=== PATIENT | female | born 1995 | race Caucasian/White ===

== ENCOUNTER 2018-10-22 17:40 | Inpatient (IN) | payer OTHER ==
[~2018-10-22] VITALS: Ht 177.8 cm; Wt 68.9 kg
[2018-10-22 17:42] VITALS: BP 126/64
[2018-10-22 18:39] LABS: HEMATOCRIT 22.7 % (37.0-47.0); HEMOGLOBIN 7.7 gm/dL (12.0-15.0); MCHC 34.1 g/dL (28.0-37.0); MCV 93.8 fL (80.0-100.0); PLATELET COUNT 199 thou/uL (150-400); RBC 2.42 mil/uL (4.20-5.00); RDW 35.5 % (10.5-14.5); WBC 2.2 thou/uL (4.0-11.0)
[2018-10-22 18:40] LABS: CALCIUM 9.1 mg/dL (8.5-10.1); CREATININE 0.8 mg/dL (0.6-1.0); POTASSIUM 3.3 mmol/L (3.5-5.1)
[2018-10-22 18:46] LABS: ALBUMIN 4.2 g/dL (3.4-5.0); TOTAL BILIRUBIN 1.7 mg/dL (<0.1-1.0); TOTAL PROTEIN 7.7 g/dL (6.4-8.2)
[2018-10-22 19:12] LABS: ABSOLUTE NEUTROPHILS 0.9 thou/uL (1.4-8.2); ATYPICAL LYMPHS 6 %
[2018-10-22 19:15] LABS: PLATELET ESTIMATE NORMAL
[2018-10-22 19:18] LABS: OVALOCYTES 1+; TEARDROPS 1+
[2018-10-22 19:20] LABS: ANISOCYTOSIS 3+; POLYCHROMASIA 1+
[2018-10-22 19:21] LABS: HYPOCHROMASIA 2+; MACROCYTES 2+; POIKILOCYTOSIS 2+
[2018-10-22 19:31] LABS: ABSOLUTE RETIC COUNT 0.0473 10^6/uL; OBSERVED RETIC COUNT 1.96 % (0.6-2.6)
[2018-10-22 19:32] LABS: % SATURATION 45 % (20-39); IRON 197 ug/dL (50-170); TIBC 436 ug/dL (250-450)
[2018-10-22 20:31] VITALS: BP 114/55
[2018-10-22] MEDS ORDERED: CARAFATE 1 GM TA1 GM PO (20:41)
[2018-10-22] MEDS ORDERED: NEXIUM40 MG PO (20:41)
[2018-10-22 21:06] VITALS: BP 106/59
--- NOTE | 2018-10-22 21:06 | NUR ---
PT DEPARTED ON ED ON ER [facility] WITH PROTONIX DRIP CONTINUED TO FLOOR WITH INPATIENT NURSE AWARE. LEFT WITH POSSESSIONS. TRANSPORTED BY RN WITH MONITOR . VSS. STABLE AT TIME OF DEPART TO 3 W ROOM 355. UNABLE TO EDIT ON DEPARTURE SCREEN
[2018-10-22 21:22] VITALS: BP 115/61
[2018-10-23] VITALS (10 sets, daily range): BP systolic 99–112; BP diastolic 47–100
[2018-10-23 03:16] LABS: URINE BILIRUBIN NEGATIVE (Negative); URINE BLOOD 3+ (Negative); URINE CLARITY CLOUDY; URINE COLOR YELLOW; URINE GLUCOSE-RANDOM* NEGATIVE (Negative); URINE KETONES 2+ (Negative); URINE LEUKOCYTES-REFLEX TRACE (Negative); URINE PROTEIN (DIPSTICK) 1+ (Negative)
[2018-10-23 03:17] LABS: URINE NITRITE-REFLEX POSITIVE (Negative)
[2018-10-23 03:23] LABS: CASTS None Seen /LPF (None Seen); MUCUS 0-3 Light strn/LPF (None Seen); SQUAMOUS 4-10 Moderate /LPF (0-3); URINE RBC >20 Many /HPF (0-2); URINE WBC-REFLEX 0-5 Rare /HPF (0-5)
[2018-10-23 03:24] LABS: CRYSTALS None Seen /LPF (None Seen)
--- NOTE | 2018-10-23 03:29 | NUR ---
PT ARRIVED TO UNIT APPROX 2130, ADMISSION AND ASSESSMENT COMPLETED, CONSENTS SIGNED INCLUDING TELEMETRY NOTICE. PT A&Ox4, PLEASANT AND COOPERATIVE WITH CARES; REPORTS WEAKNESS AND OCCASIONAL DIZZINESS OVER THE LAST 1.5 MONTHS, MADE A HIGH-FALL RISK WITH FALL PRECAUTIONS IN PLACE. PLACED ON CLEAR LIQUIDS UNTIL MIDNIGHT THEN NPO FOR GI CONSULT IN AM; WILL ALSO CONSULT HEME-ONC. IV FLUIDS AND IV PROTONIX DRIP INFUSING, GIVEN ONE BAG IV POTASSIUM REPLACEMENT. URINE SPECIMEN SENT TO LAB; WILL SEND STOOL SAMPLE IF PT HAS A BM. HAS BEEN SR ON TELE. NO OTHER CONCERNS, WILL CONTINUE TO MONITOR.
[2018-10-23 05:11] LABS: MCH 31.8 pg (26.0-34.0); MCHC 34.6 g/dL (28.0-37.0); MCV 91.8 fL (80.0-100.0); RBC 1.92 mil/uL (4.20-5.00); WBC 2.2 thou/uL (4.0-11.0)
[2018-10-23 05:13] LABS: HEMOGLOBIN 6.1 gm/dL (12.0-15.0)
[2018-10-23 05:14] LABS: HEMATOCRIT 17.6 % (37.0-47.0)
[2018-10-23 05:23] LABS: CALCIUM 8.3 mg/dL (8.5-10.1); CREATININE 0.6 mg/dL (0.6-1.0); POTASSIUM 3.8 mmol/L (3.5-5.1)
[2018-10-23 05:57] LABS: FERRITIN 24 ng/mL (8-252); FOLIC ACID 18.1 ng/mL (8.6-58.9); TSH 1.971 uIU/mL (0.358-3.740)
[2018-10-23 10:26] LABS: OBSERVED RETIC COUNT 1.69 % (0.6-2.6)
[2018-10-23 10:32] LABS: ALBUMIN 3.3 g/dL (3.4-5.0); DIRECT BILIRUBIN 0.3 mg/dL (<0.1-0.3); TOTAL BILIRUBIN 1.5 mg/dL (<0.1-1.0); TOTAL PROTEIN 5.8 g/dL (6.4-8.2)
[2018-10-23 11:43] LABS: HEMOGLOBIN 7.5 gm/dL (12.0-15.0)
[2018-10-23 11:45] LABS: HEMATOCRIT 21.9 % (37.0-47.0)
[2018-10-23 12:36] LABS: MONOTEST (MONOSPOT)* WEAKLY POSITIVE (Negative)
--- NOTE | 2018-10-23 14:46 | NUR ---
INITIAL ASSESSMENT: SW reviewed chart and spoke with attending physician. Pt was admitted from home due to anemia/GI bleed. GI consulted. Pt Hgb dropped to 6.1 from 7.7. Hem/Onc also consulted. Per chart, pt is alert/orientated x 4. Pt does not have health insurance. MARIA LUZ faxed face sheet to [facility] to request eval. MARIA LUZ notified [facility] food service representative of new referral. MARIA LUZ is following to assist as needed with discharge planning.
--- NOTE | 2018-10-23 18:00 | NUR ---
PT WAS NPO UNTIL THIS AFTERNOON. SHE TOLERATED POPSICLE, WATER AND SPRITE FOR ABOUT 3 HOURS THEN BECAME NAUSEATED @ 1700 AND WAS MEDICATED WITH ZOFRAN AND ADVISED TO TAKE CLIQ SPARINGLY UNTIL NAUSEA RESOLVES...
[2018-10-24 03:26] VITALS: BP 118/73
[2018-10-24 05:42] LABS: HEMOGLOBIN 7.8 gm/dL (12.0-15.0); MCHC 34.6 g/dL (28.0-37.0)
[2018-10-24 05:44] LABS: HEMATOCRIT 22.5 % (37.0-47.0); MCH 31.1 pg (26.0-34.0); MCV 89.8 fL (80.0-100.0); PLATELET COUNT 149 thou/uL (150-400); RBC 2.51 mil/uL (4.20-5.00); RDW 30.7 % (10.5-14.5); WBC 2.5 thou/uL (4.0-11.0)
[2018-10-24 05:58] LABS: CALCIUM 8.3 mg/dL (8.5-10.1); CREATININE 0.6 mg/dL (0.6-1.0)
--- NOTE | 2018-10-24 06:36 | NUR ---
ASSUMED CARE AT 1900. PT REPORTS FEELING NAUSEATED AND HAVING SHARP PAIN IN MULTIPLE AREAS OF THE ABD; AT START OF EVENING, IT WAS TOO EARLY TO GIVE ZOFRAN, OBTAINED ONE TIME ORDER FOR COMPAZINE. AFTER GIVING FENTANYL AND COMPAZINE, PT BECAME VERY DIZZY, DIAPHORETIC, AND MORE NAUSEATED; THIS LASTED MOST OF THE NIGHT. OBTAINED ORDER FOR REGLAN, WHICH HELPED SOME; NOW ALTERNATING BETWEEN ZOFRAN AND REGLAN FOR NAUSEA, MARKED COMPAZINE A DRUG ALLERGY. PT URINATED MULTIPLE TIMES OVERNIGHT, STILL HAS MENSTRUAL BLOOD PRESENT. HAS BEEN SR WITH HR IN 70'S, EXCEPT WHEN SHE GETS UP TO TOILET HER HR GOES UP TO 120-130'S. REMOVED LEFT AC IV SHE C/O BURNING PAIN WHEN FLUSHED. IV FLUIDS AND PROTONIX DRIP INFUSING THROUGH RIGHT HAND. PT SLEPT VERY LITTLE OVERNIGHT, AND REPORTS FEELING POORLY ALL NIGHT. STILL NEED STOOL SAMPLE FROM PT. NO OTHER CONCERNS, WILL CONTINUE TO MONITOR.
[2018-10-24 07:13] LABS: HAV IgM AB (ANTI-HAV IgM) Negative (Negative); HEPATITIS B SURFACE AG Negative (Negative); HEPATITIS C VIRUS AB <0.1 (0.0-0.9); HIV ANTIBODY Non Reactive (Non Reactive)
[2018-10-24 08:15] VITALS: BP 112/66
[2018-10-24 08:27] LABS: ABSOLUTE NEUTROPHILS 0.7 thou/uL (1.4-8.2)
[2018-10-24 08:29] LABS: ANISOCYTOSIS 3+; OVALOCYTES 1+; POLYCHROMASIA SLIGHT; TEARDROPS 1+
[2018-10-24 08:31] LABS: SCHISTOCYTES FEW
--- NOTE | 2018-10-24 16:01 | NUR ---
PT REUTRN TO UNIT FROM EGD.
[2018-10-24 16:56] VITALS: BP 122/72
[2018-10-24 19:10] LABS: ANTI-EBNA >600.0 U/mL (0.0-17.9); ANTI-VCA/IgM <36.0 U/mL (0.0-35.9); EBV EARLY ANTIGEN <9.0 U/mL (0.0-8.9)
[2018-10-24 19:38] VITALS: BP 132/75
[2018-10-25 03:41] VITALS: BP 108/55
--- NOTE | 2018-10-25 05:43 | NUR ---
PATIENT ALERT AND ORIENTED X4. LEGS RESTLESS AND PAINFUL C/O PAIN X1, MED GIVEN. SLEPT OFF AND ON DURING NIGHT. UP TO BATHROOM WITH SBA.
[2018-10-25 06:01] LABS: HEMATOCRIT 22.2 % (37.0-47.0); HEMOGLOBIN 7.6 gm/dL (12.0-15.0); MCV 91.1 fL (80.0-100.0); RBC 2.44 mil/uL (4.20-5.00); RDW 30.6 % (10.5-14.5); WBC 2.7 thou/uL (4.0-11.0)
[2018-10-25 11:38] LABS: ALBUMIN 3.1 g/dL (3.4-5.0); DIRECT BILIRUBIN 0.3 mg/dL (<0.1-0.3); TOTAL BILIRUBIN 1.1 mg/dL (<0.1-1.0); TOTAL PROTEIN 5.6 g/dL (6.4-8.2)
[2018-10-25 14:07] LABS: GLOBULIN TOTAL 2.5 g/dL (2.2-3.9); M-SPIKE Not Observed g/dL (Not Observed)
--- NOTE | 2018-10-25 15:53 | NUR ---
SW reviewed chart and spoke with nursing and attending physician. [employer] electro[employer]ating sales representative met with pt. Pt does not qualify for Medicaid. Pt does not have health insurance. Pt is not ready for discharge yet. Plan is for pt to discharge home when medically stable. SW is following to assist as needed with discharge planning.
--- NOTE | 2018-10-25 16:06 | PATH ---
[facility] [place] [address] PATHOLOGY RPT PROCEDURE Name: MAUREENKAEL Room #: 355-P ADM IN M.R.#: [id number] Admission: 10/22/18 Date of : 89 Discharge: Report #: [id number] Path Case #: [id number] [facility] Accession Number: [id number] . 01 Material submitted: . stomach - RANDOM GASTRIC BIOPSY R/O H. PYLORI . 01 Clinical history: . Pre-OP DX: Nausea, vomiting, diarrhea, anemia, weight loss, abdominal pain Post-OP DX: Gastritis, reflux . 02 Diagnosis: Stomach, random biopsies: - Chronic superficial gastritis, moderate. - No evidence of Helicobacter pylori on immunoperoxidase stain. (CAITY:bernardo; 10/25/2018) MATHEUS/10/25/2018 . 02 Electronically signed: . Jorge Ablerto Saenz MD, Pathologist NPI- [id number] . 01 Gross description: . Received in formalin labeled "Maureen, Kael, random gastric BX, rule out H. pylori," are 5 segments of hager soft tissue measuring 1.5 x 1.1 x 0.3 cm in aggregate dimensions and ranging from 0.4 to 0.9 cm in maximum dimension. The specimen is submitted entirely in cassette A1. (TSD; 10/24/2018) TOB/TOB . 02 Pathologist provided ICD-10: K29.50 . 02 CPT . 327024 Specimen Comment: A courtesy copy of this report has been sent to Specimen Comment: [phone], . Specimen Comment: Report sent to and Performed at: [address], [place] [id number] MD Jace Hubbard MD Phone: [phone] Performed at: [address] [id number] MD Nidia Davis MD Phone: [phone]
[2018-10-25 16:34] VITALS: BP 116/64
--- NOTE | 2018-10-25 16:43 | HC ---
[facility] [place] [address] [address] [place] [address] CONSULTATION Name: KAEL CARRILLO Room #: 355-P [facility] IN M.R.#: [id number] Admission: 10/22/18 Attend Phys: Chrissy Parra MD Discharge: Date of : [birth year] Report #: [id number] THIS REPORT FOR: //name// CC: FAM physician/PCP Chrissy Parra DATE OF SERVICE: 10/24/2018 INFECTIOUS DISEASES CONSULTATION REASON FOR CONSULTATION: Evaluate neutropenia and fever. HISTORY OF PRESENT ILLNESS: She patient is a 23-year-old immigrant from [place] who has been in [facility] for approximately 4 years. She has a month history of intermittent nausea and vomiting along with episodes of chills, low-grade fever, and night sweats. She has lost several pounds of weight. She has had no diarrhea, but has had intermittent abdominal pain, mostly in the epigastric region. She was treated with antacid therapy without improvement, now hospitalized for further evaluation. She underwent an upper endoscopy, which showed evidence of reflux esophagitis and atrophic gastritis. Biopsies are pending. She denies any rash or arthritis symptoms. She has had no headache or photophobia. No oral lesions. Denies any recent dental work. She has had no adenopathy or bleeding disorder identified. She has had no cough or sputum production. Denies any palpitations or chest pain. No dysuria or frequency. No hematuria. No vaginal discharge. She has been regular on her menstrual period. She denies any back or flank pain. She has had no neurologic issues or psychiatric issues. REVIEW OF SYSTEMS: As noted above. Full 10-point reviewed. ALLERGIES: None known. MEDICATIONS: As noted on her MAR, which were reviewed including ceftriaxone currently. PAST MEDICAL HISTORY: Unremarkable. FAMILY HISTORY: Noncontributory. SOCIAL HISTORY: Nonsmoker, no significant alcohol intake. She is sexually active. HIV studies and hepatitis studies were negative. No history of STDs. No tuberculosis exposure noted. She was unclear about her vaccinations. PHYSICAL EXAMINATION: VITAL SIGNS: She is afebrile and hemodynamically stable. GENERAL: Alert and cooperative, in no distress. [facility] [address] [place] [address] CONSULTATION Name: LORENAKAEL Room #: 355-P [facility] M.R.#: [id number] Admission: 10/22/18 Attend Phys: Chrissy Parra MD Discharge: Date of : 97 Report #: [id number] SKIN: Without rash or decubitus. No palpable adenopathy. HEENT: Eyes, without scleral icterus. Mouth without mucositis. NECK: Supple. LUNGS: Clear. HEART: Regular, without murmur, gallop, or rub. ABDOMEN: Soft with mild tenderness in the epigastric region. No hepatosplenomegaly or mass identified. GENITAL AND RECTAL: Not performed. BACK: Nontender with no spinal percussion tenderness or CVA tenderness. EXTREMITIES: Without clubbing, cyanosis, or edema. NEUROLOGIC: Nonfocal. No cranial nerve abnormalities. Strength in upper and lower extremities was normal. Sensation intact. Mood was normal. Mental status normal. LABORATORY STUDIES: Hemoglobin 7.8, WBC 2.5 with 29% segs, 69% lymphs, platelet count 149,000. Pathologic review of her blood work is currently pending. Creatinine 0.6, AST 43, ALT 33, albumin 3.3, alkaline phosphatase 35, bilirubin normal. B12, folate normal. TSH normal. HIV negative. Hepatitis A, B, C negative. EBV and CMV, PAS positive. Ultrasound of the abdomen showed mild increase in spleen size. Urinalysis, few wbc's, moderate bacteria. LDH 2740. IMPRESSION: A 23-year-old with a 2-month history of upper abdominal pain associated with nausea and vomiting, low-grade fever, generalized weakness, occasional night sweats, and weight loss. Findings include anemia and neutropenia along with elevated LDH. Would be concerned about hematologic malignancy versus other inflammatory condition. Infectious issues would include granulomatous diseases. No evidence of viral process at this point. RECOMMENDATIONS: We will obtain sedimentation rate, fungal serology, TB screening, RPR, and would consider CT scan imaging of the chest, abdomen, and pelvis. If no etiology otherwise identified, we would pursue bone marrow biopsy. <ELECTRONICALLY SIGNED> By: Scot Ramirez MD 10/25/18 1643 [id number] Scot Ramirez MD /nt
--- NOTE | 2018-10-25 18:09 | NUR ---
REPORT CALLED O FOURTH FLOOR.
--- NOTE | 2018-10-25 18:28 | NUR ---
TELE DISCONTINUED AND PT TRANSFERRED TO ROOM 429.
[2018-10-25 20:42] VITALS: BP 123/68
--- NOTE | 2018-10-26 00:05 | PATH ---
[facility] [place] [address] PATHOLOGY RPT PROCEDURE Name: KAEL CARRILLO Room #: 429-P ADM IN M.R.#: [id number] Admission: 10/22/18 Date of : 97 Discharge: Report #: [id number] Path Case #: [id number] [facility] Accession Number: [id number] . 01 Material submitted: . body - PERIPHERAL BLOOD SMEAR . 02 Diagnosis: Special studies report received from [facility], [address] [place] [address], [address], , [address], on case [id number], labeled with their number [id number], dated 10/25/2018. . Flow Cytometry: Hematologic Neoplasia Assessment . Clinical History Neutropenia and anemia . Indication for Study Evaluation for hematolymphoid neoplasia . Specimen Peripheral Blood . Viability 93% (7AAD exclusion) . Interpretation Peripheral Blood: - No evidence for abnormal myeloid maturation or an increased blast population. - No evidence for a B-cell or T-cell lymphoproliferative disorder. . Comments Correlation with available clinical, laboratory, and morphologic data is recommended. . Populations Analyzed Myeloid Blasts: 0.3% No significant blast population detected Lymphocytes: 66% B-cells: 5.1%, polytypic/polyclonal sIg light chain pattern T-cells: no significant abnormalities of the markers tested CD4+ T-cells: 34.2% (including 0.9% CD57+ cells) CD8+ T-cells: 18.0% (including 2.6% CD57+ cells) CD4:CD8: 1.9 NK cells: 3.9% Neutrophils: 28% No significant abnormalities of the markers tested Monocytes: 1% No significant abnormalities of the markers tested [address] [address] PATHOLOGY RPT PROCEDURE Name: KAEL CARRILLO Room #: 429-P ADM IN .R.#: [id number] Admission: 10/22/18 Date of : [birth year] Discharge: Report #: [id number] Path Case #: [id number] Eosinophils: 2% No relative increase Basophils: 0.2% No relative increase CD45 Negative 2.5% No significant reactivity with the markers tested Events/Debris: (may represent unlysed red blood cells, erythroid precursors, platelets, debris, etc.) . Morphologic Evaluation A slide was reviewed for quality systems technician purposes only. . Specimen Description Total Cell Yield: 1.22 X 10 and 6 . Reagent(s) Used CD2, CD3, CD4, CD5, CD7, CD8, CD10, CD11b, CD13, CD14, CD16, CD19, CD20, CD33, CD34, CD38, CD45, CD56, CD57, CD64, CD117, HLA-DR, kappa, lambda . at [facility]. Antonia Amaro MD Hematopathologist . . Intended Use Flow cytometry is optimally used to immunophenotypically characterize abnormal populations when they are detected. Negative flow cytometry results do not exclude lymphoma or neoplasia. Possible false negative flow cytometry results may occur in, but are not limited to, the following: neoplastic cells in Hodgkin lymphoma are not typically adequately represented by routine clinical flow cytometry; neoplastic cells may be lost or inadequately represented due to degeneration, sample processing, sampling artifact, or patchy involvement; plasma cells are typically underrepresented by flow cytometry; immature cells/blasts may be underrepresented due to hemodilution; myeloproliferative disorders and low grade myelodysplasia may not have immunophenotypic abnormalities or increased blasts. Correlation with all available clinical, laboratory, and morphologic data is always necessary to assess for the possibility of false negative flow cytometry results and to establish a diagnosis. Each marker in this analysis was used to assess for potential antigenic abnormalities or to evaluate detected abnormalities. . Disclaimer(s) This test was performed at [facility]. at [address] [place] [address], [phone] - [employer]: Piero Gaviria MD. [facility] is a business unit of [facility] a wholly-owned subsidiary of [employer]. . [address] [address] PATHOLOGY RPT PROCEDURE Name: LORENAKAEL Room #: 429-P [facility] IN M.R.#: [id number] Admission: 10/22/18 Date of : [birth year] Discharge: Report #: [id number] Path Case #: [id number] Any image or images that accompany this report are retail customer service representative images only and should not be used to render a diagnosis. . This test was developed and its performance characteristics determined by [facility]. It has not been cleared or approved by the Food and Drug Administration (FDA). The FDA has determined that such clearance or approval is not necessary. . For inquiries, the physician may contact Lab: [phone] . A complete copy of the report is on file. . Professional services performed by [employer]. at [address], [place] [address]. Technical services performed by [employer]. at [address], [place] [address]. . (CLW:j 10/25/2018) . [facility]/10/25/2018 . 02 Electronically signed: . Elvira Buenrostro MD, Pathologist NPI- [id number] . 02 Pathologist provided ICD-10: D70.9, D64.9 . 02 CPT . 856399 Specimen Comment: A courtesy copy of this report has been sent to Specimen Comment: [phone], . Specimen Comment: Report sent to and Performed at: 01 [facility] [address] [facility] [address], [place] [id number] MD Jace Hubbard MD Phone: [phone] Performed at: 02 [facility] [address] [id number] MD Melecio Liz MD Phone: [phone]
--- NOTE | 2018-10-26 01:56 | NUR ---
PT IS ALERT AND ORIENTED. DENIES PAIN. UP AD MEDHAT TO THE BATHROOM-DENIES FEELING WEAK OR DIZZY. NO EPISODES OF N/V. VSS. AFEBRILE. SHE IS CURIOUS ABOUT WHEN SHE WILL D/C HOME.
[2018-10-26 03:35] VITALS: BP 97/68
[2018-10-26 05:24] LABS: HEMATOCRIT 24.4 % (37.0-47.0); HEMOGLOBIN 8.4 gm/dL (12.0-15.0); MCH 31.1 pg (26.0-34.0); MCHC 34.4 g/dL (28.0-37.0); MCV 90.3 fL (80.0-100.0); RBC 2.7 mil/uL (4.20-5.00); RDW 32.4 % (10.5-14.5); WBC 2.7 thou/uL (4.0-11.0)
[2018-10-26 08:42] VITALS: BP 109/71
--- NOTE | 2018-10-26 16:54 | NUR ---
Assumed care of pt at 0700. No c/o pain. Up ad larissa. Family at bedside. CT scan ordered. No c/o n/v. Assessment completed. Call light within reach. Will continue to monitor.
[2018-10-26 17:08] VITALS: BP 113/63
[2018-10-26 19:40] VITALS: BP 119/65
[2018-10-27 03:15] VITALS: BP 102/54
[2018-10-27 07:40] VITALS: BP 103/57
--- NOTE | 2018-10-27 07:49 | NUR ---
SHIFT SUMMARY: VERY PLEASANT. DENIES PAIN. GIVEN ZOFRAN X 1. REPORTS APPETITE IS BETTER.
[2018-10-27 11:01] LABS: HEMATOCRIT 24.3 % (37.0-47.0); MCH 30.4 pg (26.0-34.0); MCHC 32.8 g/dL (28.0-37.0); MCV 92.6 fL (80.0-100.0); PLATELET COUNT 162 thou/uL (150-400); RBC 2.63 mil/uL (4.20-5.00); RDW 31.6 % (10.5-14.5)
[2018-10-27 11:03] LABS: CALCIUM 8.6 mg/dL (8.5-10.1); CREATININE 0.7 mg/dL (0.6-1.0); POTASSIUM 3.3 mmol/L (3.5-5.1)
--- NOTE | 2018-10-27 11:08 | NUR ---
7am-1pm Received awake on bed. Due medications given as prescribed, able to swallow capsule without difficulty. A+Ox4. On room air. No nausea and vomiting and abdominal pain noted. With SL at R hand- intact and flushing well. Vital signs stable. Pt keen to go home, informed her that no discharge orders has been put up yet and will let her know once it is in.
[2018-10-27 12:38] LABS: ABSOLUTE NEUTROPHILS 0.7 thou/uL (1.4-8.2); METAMYELOCYTES 1 %; MYELOCYTES 2 %; NUCLEATED RBCS 1 /100WBC
[2018-10-27 12:39] LABS: ANISOCYTOSIS 3+; TEARDROPS 1+
[2018-10-27 12:40] LABS: OVALOCYTES 1+
[2018-10-27 12:41] LABS: SCHISTOCYTES FEW
[2018-10-27 12:42] LABS: MACROCYTES 1+; MICROCYTES 1+
[2018-10-27 13:07] LABS: SYPHILIS AB Negative (Negative)
[2018-10-27] MEDS ORDERED: IRON325 PO (15:26)
[2018-10-27] MEDS ORDERED: COLACE100 MG PO (15:26)
--- NOTE | 2018-10-27 16:01 | NUR ---
Discharge order received. Pt will discharge to home. Family at bedside.
[2018-10-27 16:02] VITALS: BP 103/57
[2018-10-28 15:09] LABS: HISTOPLASMA MYCELIAL-ID Negative (Negative)
[2018-10-29 09:46] LABS: T-SPOT.TB Negative
[2018-10-29 10:06] LABS: HEMOGLOBIN 7.8 g/dL (11.1-15.9)
== END 2018-10-27 16:50 | disposition home or self-care (01) | DRG 391 ==
LOC: ER 17:40 → EROBS 20:12 → 3W 20:12 → 4E 10-25 18:32
PROVIDERS: Emergency Medicine; Hospitalist; Internal Medicine Gastroenterology; Internal Medicine Hematology & Oncology; Nurse Practitioner; Nurse Practitioner Family; Physician Assistant; Specialist; ADMIT Internal Medicine
PROC: 30233N1 Transfusion of Nonautologous Red Blood Cells into Peripheral Vein, Percutaneous Approach (ICD-10-PCS; principal; 2018-10-23)
PROC: 0DB68ZX Excision of Stomach, Via Natural or Artificial Opening Endoscopic, Diagnostic (ICD-10-PCS; 2018-10-24)
DX: K21.0 Gastro-esophageal reflux disease with esophagitis (principal); E43 Unspecified severe protein-calorie malnutrition; D61.818 Other pancytopenia; N39.0 Urinary tract infection, site not specified; K29.40 Chronic atrophic gastritis without bleeding; D72.819 Decreased white blood cell count, unspecified; E87.6 Hypokalemia; R74.0 Nonspecific elevation of levels of transaminase and lactic acid dehydrogenase [LDH]; R16.1 Splenomegaly, not elsewhere classified; E53.8 Deficiency of other specified B group vitamins; D75.9 Disease of blood and blood-forming organs, unspecified; B96.20 Unspecified Escherichia coli [E. coli] as the cause of diseases classified elsewhere; Z88.8 Allergy status to other drugs, medicaments and biological substances; Z79.899 Other long term (current) drug therapy; Z68.21 Body mass index [BMI] 21.0-21.9, adult
CPT/HCPCS: 10783; 10879; 62110; 62900; 70005